=== PATIENT | female | born 1965 | race Caucasian/White ===

== ENCOUNTER 2018-03-29 11:15 | Emergency (ER) | payer OTHER, BC ==
[2018-03-29] MEDS: SOD CHLORIDE 0.9% 1,000 ML IV (16:14)
[2018-03-29 16:25] LABS: ADD MAN DIFF? NO
[2018-03-29] MEDS: morphine 2 MG INJ IV (16:31)
[2018-03-29 16:32] LABS: BASOPHILS % 0.6 % (0.0-2.0); EOSINOPHILS # 0.2 10^3/ul (0.0-0.5); EOSINOPHILS % 3.4 % (0.0-7.0); HEMATOCRIT 40.4 % (37.0-47.0); HEMOGLOBIN 13.5 g/dl (12.0-16.0); LYMPHOCYTES # 1.7 10^3/ul (0.8-2.9); LYMPHOCYTES % 23.7 % (15.0-51.0); MEAN CORPUSCULAR HEMOGLOBIN 30.8 pg (29.0-33.0); MEAN CORPUSCULAR HGB CONC 33.4 g/dl (32.0-37.0); MEAN CORPUSCULAR VOLUME 92.2 fl (82.0-101.0); MEAN PLATELET VOLUME 11.6 fl (7.4-10.4); MONOCYTE # 0.4 10^3/ul (0.3-0.9); MONOCYTES % 5.8 % (0.0-11.0); NEUTROPHIL # 4.7 10^3/ul (1.6-7.5); NEUTROPHILS % 66.4 % (39.0-77.0); PLATELET COUNT 203 10^3/UL (140-415); RED BLOOD COUNT 4.38 10^6/ul (4.20-5.40); RED CELL DISTRIBUTION WIDTH 12.4 % (11.5-14.5)
[2018-03-29 16:48] LABS: HEMOGLOBIN A1C 5.1 % (0-5.9)
[2018-03-29 16:53] LABS: INR 0.89; PROTIME 12.1 Sec (11.9-14.9); PT RATIO 0.9
[2018-03-29 16:54] LABS: PARTIAL THROMBOPLASTIN TIME 29.6 Sec (25.0-35.0)
[2018-03-29 17:01] LABS: ADD UMIC YES; UR ASCORBIC ACID NEGATIVE (NEGATIVE); UR BILIRUBIN (Dip) NEGATIVE (NEGATIVE); UR BLOOD (Dip) 2+ mg/dL (NEGATIVE); UR CLARITY CLEAR (CLEAR); UR COLOR YELLOW (YELLOW); UR GLUCOSE (Dip) NEGATIVE (NEGATIVE); UR KETONES (Dip) NEGATIVE (NEGATIVE); UR LEUKOCYTE ESTERASE (Dip) NEGATIVE Leu/ul (NEGATIVE); UR NITRITE (Dip) NEGATIVE (NEGATIVE); UR RBC 2 /HPF (0-5); UR SPECIFIC GRAVITY (Dip) 1.012 (1.003-1.030); UR TOTAL PROTEIN (Dip) NEGATIVE (NEGATIVE); UR UROBILINOGEN (Dip) NEGATIVE (NEGATIVE); UR WBC 0 /HPF (0-5)
[2018-03-29] MEDS: KETOROLAC 30 MG INJ IV (18:08)
[2018-03-29 19:02] LABS: ANION GAP 12 (8-16); BLOOD UREA NITROGEN 12 mg/dl (7-20); CALCIUM 9.1 mg/dl (8.4-10.2); CARBON DIOXIDE 29 mmol/L (21-31); CHLORIDE 110 mmol/L (97-110); CHOLESTEROL 209 mg/dl (100-200); CREATININE 0.51 mg/dl (0.44-1.00); GLUCOSE 86 mg/dl (70-220); HDL CHOLESTEROL 68 mg/dl (37-92); LDL CHOLESTEROL,CALCULATED 124 mg/dl; POTASSIUM 4.9 mmol/L (3.5-5.1); SODIUM 146 mmol/L (135-144); TRIGLYCERIDES 85 mg/dl (0-149)
[2018-03-29 19:16] LABS: TROPONIN-I < 0.012 ng/ml (0.00-0.12)
[2018-03-29] MEDS ORDERED: ASPIRIN 81 MG TAB PO (20:00)
== END 2018-03-29 20:49 | disposition home or self-care (01) ==
LOC: E/R 11:15
DX: R53.1 Weakness (principal)
CPT/HCPCS: 36415; 70450; 71045; 80048; 80061; 81001; 81025; 83036; 84484; 85025; 85610; 85730; 93005; 96374; 96375; 99285-25

== ENCOUNTER 2018-05-15 13:28 | Emergency (ER) | payer OTHER ==
[2018-05-15] MEDS: HYDROCODONE/APAP (5/325) TAB PO (13:46)
[2018-05-15] MEDS: morphine LIQ (10 MG/5 ML) CUP PO (15:05)
[2018-05-15] MEDS: HYDROmorphONE 2 MG/ML SYG IM (16:29)
[2018-05-15] MEDS: LIDOCAINE 5% PATCH TD (16:57)
[2018-05-15] MEDS: METHYLPREDNISOLONE 125 MG INJ IM (17:45)
[2018-05-15] MEDS: KETOROLAC 60 MG INJ IM (17:46)
== END 2018-05-15 18:35 | disposition home or self-care (01) ==
LOC: FTE 13:28
DX: M54.41 Lumbago with sciatica, right side (principal)
CPT/HCPCS: 96372; 99284-25; J1170

== ENCOUNTER 2019-03-21 22:26 | Emergency (ER) | payer OTHER ==
[2019-03-21] MEDS: ONDANSETRON 4 MG INJ IV (22:43)
[2019-03-21] MEDS: HYDROmorphONE 1 MG/ML SYG IV (22:43)
[2019-03-21 23:19] LABS: ADD MAN DIFF? NO
[2019-03-21 23:22] LABS: BASOPHILS % 0.1 % (0.0-2.0); HEMATOCRIT 32.5 % (37.0-47.0); LYMPHOCYTES # 0.7 10^3/ul (0.8-2.9); LYMPHOCYTES % 5.4 % (15.0-51.0); MEAN CORPUSCULAR HEMOGLOBIN 30.6 pg (29.0-33.0); MEAN CORPUSCULAR HGB CONC 33.8 g/dl (32.0-37.0); MEAN CORPUSCULAR VOLUME 90.3 fl (82.0-101.0); MEAN PLATELET VOLUME 11.3 fl (7.4-10.4); MONOCYTE # 0.7 10^3/ul (0.3-0.9); MONOCYTES % 5.2 % (0.0-11.0); NEUTROPHIL # 12.1 10^3/ul (1.6-7.5); NEUTROPHILS % 88.7 % (39.0-77.0); PLATELET COUNT 179 10^3/UL (140-415); RED CELL DISTRIBUTION WIDTH 12.1 % (11.5-14.5)
[2019-03-21 23:22] LABS: WHITE BLOOD COUNT 13.7 10^3/ul (4.8-10.8)
[2019-03-22 00:24] LABS: ALANINE AMINOTRANSFERASE 78 IU/L (13-69); ALBUMIN 3.9 g/dl (3.3-4.9); ALBUMIN/GLOBULIN RATIO 1.44; ALKALINE PHOSPHATASE 120 IU/L (42-121); ANION GAP 7 (5-13); ASPARTATE AMINO TRANSFERASE 127 IU/L (15-46); BILIRUBIN,INDIRECT 0.3 mg/dl (0-1.1); BILIRUBIN,TOTAL 0.3 mg/dl (0.2-1.3); BLOOD UREA NITROGEN 10 mg/dl (7-20); CALCIUM 9.1 mg/dl (8.4-10.2); CARBON DIOXIDE 26 mmol/L (21-31); CHLORIDE 107 mmol/L (97-110); CREATININE 0.48 mg/dl (0.44-1.00); Estimated GFR > 60 mL/min (>60); GLUCOSE 133 mg/dl (70-220); LIPASE 36 U/L (23-300); POTASSIUM 4.5 mmol/L (3.5-5.1); SODIUM 140 mmol/L (135-144); TOTAL PROTEIN 6.6 g/dl (6.1-8.1)
[2019-03-22] MEDS: HYDROmorphONE 2 MG/ML SYG IV (00:31)
[2019-03-22] MEDS: ONDANSETRON 4 MG INJ IV (07:43)
[2019-03-22] MEDS: HYDROmorphONE 1 MG/ML SYG IV ×2 (07:43→10:13)
[2019-03-22 07:58] LABS: UR CLARITY CLEAR (CLEAR); UR COLOR YELLOW (YELLOW)
[2019-03-22 07:59] LABS: ADD UMIC YES; UR ASCORBIC ACID NEGATIVE (NEGATIVE); UR BACTERIA FEW /HPF (NONE SEEN); UR BILIRUBIN (Dip) NEGATIVE (NEGATIVE); UR BLOOD (Dip) 2+ mg/dL (NEGATIVE); UR GLUCOSE (Dip) NEGATIVE (NEGATIVE); UR KETONES (Dip) NEGATIVE (NEGATIVE); UR LEUKOCYTE ESTERASE (Dip) NEGATIVE Leu/ul (NEGATIVE); UR MUCUS FEW /HPF (NONE SEEN); UR NITRITE (Dip) NEGATIVE (NEGATIVE); UR RBC 55 /HPF (0-5); UR SPECIFIC GRAVITY (Dip) 1.014 (1.003-1.030); UR TOTAL PROTEIN (Dip) NEGATIVE (NEGATIVE); UR UROBILINOGEN (Dip) NEGATIVE (NEGATIVE); UR WBC 3 /HPF (0-5)
[2019-03-22] MEDS: CEFAZOLIN 1 GM/50 ML (PMX) 50 ML IVPB (08:39)
[2019-03-22] MEDS: CYCLOBENZAPRINE 10 MG TAB PO (08:39)
[2019-03-22] MEDS: LORAZEPAM 2 MG INJ IV (10:27)
== END 2019-03-22 13:28 | disposition short-term general hospital (02) ==
LOC: E/R 22:26
DX: G89.18 Other acute postprocedural pain (principal)
CPT/HCPCS: 80053; 81001; 83690; 85025; 96365; 96375; 96376; 99284-25

== ENCOUNTER 2019-04-12 15:00 | Emergency (ER) | payer OTHER ==
[2019-04-12] MEDS: KETOROLAC 30 MG INJ IM (17:50)
== END 2019-04-12 18:43 | disposition home or self-care (01) ==
LOC: FTE 18:43
DX: M25.561 Pain in right knee (principal)
CPT/HCPCS: 73562; 81025; 93971; 96372; 99285-25

== ENCOUNTER 2019-05-21 21:31 | Emergency (ER) | payer OTHER ==
[2019-05-21 22:34] LABS: ADD MAN DIFF? NO
[2019-05-21] MEDS: KETOROLAC 15 MG INJ IV (22:34)
[2019-05-21 22:38] LABS: BASOPHIL # 0.1 10^3/ul (0.0-0.1); BASOPHILS % 0.7 % (0.0-2.0); EOSINOPHILS # 0.3 10^3/ul (0.0-0.5); EOSINOPHILS % 3.9 % (0.0-7.0); HEMATOCRIT 35.8 % (37.0-47.0); HEMOGLOBIN 11.7 g/dl (12.0-16.0); LYMPHOCYTES # 2.3 10^3/ul (0.8-2.9); LYMPHOCYTES % 32.2 % (15.0-51.0); MEAN CORPUSCULAR HEMOGLOBIN 28.7 pg (29.0-33.0); MEAN CORPUSCULAR HGB CONC 32.7 g/dl (32.0-37.0); MEAN PLATELET VOLUME 10.2 fl (7.4-10.4); MONOCYTE # 0.4 10^3/ul (0.3-0.9); MONOCYTES % 5.8 % (0.0-11.0); NEUTROPHIL # 4.2 10^3/ul (1.6-7.5); NEUTROPHILS % 57.3 % (39.0-77.0); PLATELET COUNT 267 10^3/UL (140-415); RED BLOOD COUNT 4.07 10^6/ul (4.20-5.40); RED CELL DISTRIBUTION WIDTH 12.8 % (11.5-14.5)
[2019-05-21 22:38] LABS: WHITE BLOOD COUNT 7.3 10^3/ul (4.8-10.8)
[2019-05-21 22:53] LABS: ANION GAP 10 (5-13); BLOOD UREA NITROGEN 14 mg/dl (7-20); CALCIUM 9.3 mg/dl (8.4-10.2); CARBON DIOXIDE 30 mmol/L (21-31); CHLORIDE 104 mmol/L (97-110); Estimated GFR > 60 mL/min (>60); GLUCOSE 110 mg/dl (70-220); POTASSIUM 4.5 mmol/L (3.5-5.1); SODIUM 144 mmol/L (135-144)
[2019-05-21 22:58] LABS: INR 0.82; PROTIME 11.4 Sec (11.9-14.9); PT RATIO 0.9
[2019-05-21 23:01] LABS: D-DIMER 1410.57 ng/ml (<460)
[2019-05-21 23:04] LABS: B-TYPE NATRIURETIC PEPTIDE 56 PG/ML (0-125); TROPONIN-I < 0.012 ng/ml (0.000-0.120)
[2019-05-21] MEDS: SOD CHLORIDE 0.9% 100 ML (23:48)
[2019-05-21] MEDS: IOHEXOL 100 ML (23:48)
[2019-05-22] MEDS: DIAZEPAM 5 MG/ML SYG IV (02:10)
== END 2019-05-22 02:49 | disposition home or self-care (01) ==
LOC: E/R 05-22 02:49
DX: M54.6 Pain in thoracic spine (principal); D64.9 Anemia, unspecified; R79.1 Abnormal coagulation profile
CPT/HCPCS: 36415; 71045; 71275; 80048; 83880; 84484; 85025; 85378; 85610; 93005; 96374; 96375; 99285-25